=== PATIENT | female | born 1955 | race Caucasian/White ===

== ENCOUNTER 2021-01-18 20:10 | Emergency (ER) | payer OTHER ==
[~2021-01-18] VITALS: Ht 160 cm; Wt 61.2 kg
[2021-01-18] MEDS ORDERED: ZYRTEC10 M3 PO (20:34)
[2021-02-04] MEDS ORDERED: ALBUTEROL (16:50)
[2021-02-04] MEDS ORDERED: ZYRTEC10 M3 (16:50)
== END 2021-01-18 22:39 | disposition home or self-care (01) ==
LOC: ER 20:10
DX: R06.02 Shortness of breath (principal)

== ENCOUNTER 2021-01-22 00:14 | Emergency (ER) | payer OTHER ==
[~2021-01-22] VITALS: Ht 160 cm; Wt 61.2 kg
[~2021-01-22 00:14] MED LIST: ZYRTEC10 M3 PO
[2021-01-22] MEDS ORDERED: ALBUTEROL2.5 MG/3 M IH (05:13)
[2021-02-04] MEDS ORDERED: ALBUTEROL (16:50)
[2021-02-04] MEDS ORDERED: ZYRTEC10 M3 (16:50)
== END 2021-01-22 05:34 | disposition home or self-care (01) ==
LOC: ER 00:14
DX: R06.02 Shortness of breath (principal)

== ENCOUNTER 2021-01-25 21:23 | Emergency (ER) | payer OTHER ==
[~2021-01-25] VITALS: Ht 160 cm; Wt 53.5 kg
[~2021-01-25 21:23] MED LIST changes: +ALBUTEROL2.5 MG/3 M IH
[2021-02-04] MEDS ORDERED: ZYRTEC10 M3 (16:50)
[2021-02-04] MEDS ORDERED: ALBUTEROL (16:50)
== END 2021-01-25 23:44 | disposition home or self-care (01) ==
LOC: ER 21:23
DX: J02.9 Acute pharyngitis, unspecified (principal)

== ENCOUNTER 2021-01-27 06:35 | Emergency (ER) | payer OTHER ==
[~2021-01-27] VITALS: Ht 160 cm; Wt 53.5 kg
[2021-02-04] MEDS ORDERED: ALBUTEROL (16:50)
[2021-02-04] MEDS ORDERED: ZYRTEC10 M3 (16:50)
== END 2021-01-27 09:20 | disposition home or self-care (01) ==
LOC: ER 06:35
DX: J39.2 Other diseases of pharynx (principal)

== ENCOUNTER 2021-01-28 22:02 | Emergency (ER) | payer OTHER ==
[~2021-01-28] VITALS: Ht 160 cm; Wt 53.5 kg
[2021-02-04] MEDS ORDERED: ALBUTEROL (16:50)
[2021-02-04] MEDS ORDERED: ZYRTEC10 M3 (16:50)
== END 2021-01-29 00:54 | disposition home or self-care (01) ==
LOC: ER 22:02
DX: R06.02 Shortness of breath (principal); F41.1 Generalized anxiety disorder

== ENCOUNTER → 2021-02-04 | Emergency (ER) | payer OTHER ==
[~2021-02-04] VITALS: Ht 160 cm; Wt 53.5 kg
[~2021-02-04] MED LIST changes: +ALBUTEROL; +LEVALBUTER1.25 MG/0. IH; +ZYRTEC10 M3
== END | disposition left against medical advice (07) ==
LOC: ER 15:53
DX: J45.998 Other asthma (principal)

== ENCOUNTER 2021-02-08 23:57 | Emergency (ER) | payer OTHER ==
[~2021-02-08] VITALS: Ht 160 cm; Wt 53.5 kg
[~2021-02-08 23:57] MED LIST changes: -LEVALBUTER1.25 MG/0. IH
== END 2021-02-09 04:20 | disposition home or self-care (01) ==
LOC: ER 23:57
DX: J45.998 Other asthma (principal); R06.02 Shortness of breath

== ENCOUNTER 2021-02-17 00:31 | Emergency (ER) | payer OTHER ==
[~2021-02-17] VITALS: Ht 160 cm; Wt 53.5 kg
[2021-02-17] MEDS ORDERED: LEVALBUTER1.25 MG/0. IH (05:24)
== END 2021-02-17 05:43 | disposition home or self-care (01) ==
LOC: ER 00:31
DX: J45.901 Unspecified asthma with (acute) exacerbation (principal); R06.02 Shortness of breath; F41.0 Panic disorder [episodic paroxysmal anxiety]